=== PATIENT | female | born 1975 | race American Indian/Alaskan Native ===

== ENCOUNTER 2019-01-13 19:54 | Emergency (ER) | payer BC, MEDICAID ==
[~2019-01-13] VITALS: Ht 157.5 cm; Wt 84.1 kg
[~2019-01-13 19:54] MED LIST: CHOL100046 PO; CLIN-5 PO; FENO48TA16 PO; HYDR-4383 PO; PANT40TA4 PO; SITA50TA7 PO
[2019-01-13 20:19] VITALS: BP 163/104
== END 2019-01-13 21:18 | disposition home or self-care (01) ==
LOC: ER 19:55
DX: T18.8XXA Foreign body in other parts of alimentary tract, initial encounter (principal); E11.9 Type 2 diabetes mellitus without complications; F10.99 Alcohol use, unspecified with unspecified alcohol-induced disorder; Z90.49 Acquired absence of other specified parts of digestive tract; Z98.890 Other specified postprocedural states; Z88.0 Allergy status to penicillin; Z79.899 Other long term (current) drug therapy; X58.XXXA Exposure to other specified factors, initial encounter; Y93.89 Activity, other specified; Y92.89 Other specified places as the place of occurrence of the external cause; Y99.8 Other external cause status; Y90.9 Presence of alcohol in blood, level not specified
CPT/HCPCS: 99281

== ENCOUNTER 2019-09-13 08:50 | Outpatient (CLI) | payer BC, MEDICAID ==
[~2019-09-13 08:50] MED LIST changes: -CHOL100046 PO; +CHOL500050 PO; -CLIN-5 PO; -FENO48TA16 PO; +FENO54TA PO; +HYDR-3972 PO; -HYDR-4383 PO; +INSU100I31 SQ; +OMEG-107 PO; +SITA1TAB6 PO; -SITA50TA7 PO
[2019-09-13] MEDS ORDERED: LIDOcaine 2% 5ml jelly ONE (09:24)
== END 2019-09-13 09:50 | disposition home or self-care (01) ==
LOC: WOUND CARE 08:50 → EDSTATUS 09:00 → WOUND CARE 09:50
PROVIDERS: ATTEND Nurse Practitioner
DX: E11.622 Type 2 diabetes mellitus with other skin ulcer (principal); L98.492 Non-pressure chronic ulcer of skin of other sites with fat layer exposed; S71.001A Unspecified open wound, right hip, initial encounter; E78.1 Pure hyperglyceridemia; F17.200 Nicotine dependence, unspecified, uncomplicated; Z90.49 Acquired absence of other specified parts of digestive tract; Z79.899 Other long term (current) drug therapy; X95.9XXA Assault by unspecified firearm discharge, initial encounter; Y93.89 Activity, other specified; Y92.89 Other specified places as the place of occurrence of the external cause; Y99.8 Other external cause status
CPT/HCPCS: 36416; 82948; G0463

== ENCOUNTER 2019-09-20 13:45 | Day surgery (SDC) | payer BC, MEDICAID ==
[2019-09-20] MEDS ORDERED: LIDOcaine 2% 5ml jelly ONE (13:57)
== END 2019-09-20 14:25 | disposition home or self-care (01) ==
LOC: WOUND CARE 13:45
PROVIDERS: ATTEND Nurse Practitioner
DX: E11.622 Type 2 diabetes mellitus with other skin ulcer (principal); L98.492 Non-pressure chronic ulcer of skin of other sites with fat layer exposed; S71.001D Unspecified open wound, right hip, subsequent encounter; E78.1 Pure hyperglyceridemia; F17.200 Nicotine dependence, unspecified, uncomplicated; Z90.49 Acquired absence of other specified parts of digestive tract; Z79.899 Other long term (current) drug therapy; X95.9XXD Assault by unspecified firearm discharge, subsequent encounter
CPT/HCPCS: 36416; 97597

== ENCOUNTER 2019-09-27 13:20 | Day surgery (SDC) | payer BC, MEDICAID ==
[2019-09-27] MEDS ORDERED: LIDOcaine 2% 5ml jelly ONE (13:42)
== END 2019-09-27 14:02 | disposition home or self-care (01) ==
LOC: WOUND CARE 13:20
PROVIDERS: ATTEND Nurse Practitioner
DX: E11.622 Type 2 diabetes mellitus with other skin ulcer (principal); L98.492 Non-pressure chronic ulcer of skin of other sites with fat layer exposed; S71.001D Unspecified open wound, right hip, subsequent encounter; E78.1 Pure hyperglyceridemia; F17.200 Nicotine dependence, unspecified, uncomplicated; Z90.49 Acquired absence of other specified parts of digestive tract; Z79.899 Other long term (current) drug therapy; X95.9XXD Assault by unspecified firearm discharge, subsequent encounter
CPT/HCPCS: 97597

== ENCOUNTER 2021-09-14 16:43 | Emergency (ER) | payer BC, MEDICAID ==
[~2021-09-14] VITALS: Ht 157.5 cm; Wt 81.8 kg
[~2021-09-14 16:43] MED LIST changes: -OMEG-107 PO; +OMEG-220 PO; -PANT40TA4 PO; +PANT40TA54 PO
[2021-09-14 16:56] VITALS: BP 168/108
== END 2021-09-14 19:39 | disposition home or self-care (01) ==
LOC: ER 16:44
DX: R04.0 Epistaxis (principal); E11.9 Type 2 diabetes mellitus without complications; I10 Essential (primary) hypertension; Z98.890 Other specified postprocedural states; Z88.0 Allergy status to penicillin; Z79.899 Other long term (current) drug therapy
CPT/HCPCS: 99282

== ENCOUNTER 2022-02-07 22:54 | Emergency (ER) | payer BC, MEDICAID ==
[~2022-02-07] VITALS: Ht 157.5 cm; Wt 80.9 kg
[2022-02-08] MEDS ORDERED: LORazepam 1 MG tablet PO ONE (00:05)
[2022-02-08] MEDS ORDERED: acetaminophen 325mg tablet PO ONE (00:05)
[2022-02-08 00:10] LABS: BASOPHILS # (AUTO) 0.1 X10'3 (0-0.2); BASOPHILS % (AUTO) 0.9 % (0-1); EOSINOPHILS # (AUTO) 0.1 X10'3 (0-0.9); EOSINOPHILS % (AUTO) 1.4 % (0-6); HEMATOCRIT 39.3 % (35.0-45.0); LYMPHOCYTES # (AUTO) 2.6 X10'3 (1.1-4.8); MEAN CORPUSCULAR HEMOGLOBIN 33.7 PG (27.0-31.0); MEAN CORPUSCULAR HGB CONC 35.6 g/dL (33.0-36.5); MEAN CORPUSCULAR VOLUME 94.8 FL (78-98); MEAN PLATELET VOLUME 9.2 FL (7.4-10.4); MONOCYTES # (AUTO) 0.6 X10'3 (0-0.9); MONOCYTES % (AUTO) 6.3 % (2-12); NEUTROPHILS # (AUTO) 5.4 X10'3 (1.8-7.7); NEUTROPHILS % (AUTO) 61.4 % (42-75); PLATELET COUNT 173 X10'3 (140-440); RED BLOOD COUNT 4.15 X10'6 (4.20-5.60); RED CELL DISTRIBUTION WIDTH 12.6 % (11.5-14.5); WHITE BLOOD COUNT 8.8 X10'3 (4.5-11.0)
[2022-02-08 01:01] LABS: ALANINE AMINOTRANSFERASE 87 U/L (12-78); ALBUMIN 3.8 G/DL (3.4-5.0); ALBUMIN/GLOBULIN RATIO 1.2 (1.1-1.5); ALKALINE PHOSPHATASE 111 IU/L (46-116); ANION GAP 9 (8-16); ASPARTATE AMINO TRANSFERASE 31 U/L (10-37); BILIRUBIN,TOTAL 0.3 MG/DL (0.1-1.0); BLOOD UREA NITROGEN 12 MG/DL (7-18); CALCIUM 8.7 MG/DL (8.5-10.1); CHLORIDE 101 MMOL/L (99-107); GLUCOSE 221 MG/DL (70-104); POTASSIUM 3.7 MMOL/L (3.5-5.1); SODIUM 136 MMOL/L (135-145); TOTAL PROTEIN 7.1 G/DL (6.4-8.2); eGFR 77 ML/MIN
[2022-02-08 01:35] VITALS: BP 136/84
== END 2022-02-08 01:37 | disposition home or self-care (01) ==
LOC: ER 22:56
DX: I10 Essential (primary) hypertension (principal); E11.9 Type 2 diabetes mellitus without complications; F17.200 Nicotine dependence, unspecified, uncomplicated; Z90.49 Acquired absence of other specified parts of digestive tract; Z88.0 Allergy status to penicillin; Z79.899 Other long term (current) drug therapy
CPT/HCPCS: 36415; 71045; 80053; 83880; 84484; 85025; 93005; 99285

== ENCOUNTER 2022-02-08 21:50 | Emergency (ER) | payer BC, MEDICAID ==
[~2022-02-08] VITALS: Ht 157.5 cm; Wt 77.3 kg
[2022-02-09] MEDS: diphenhydrAMINE 50 mg/ml inj IM ONE (02:54)
[2022-02-09] MEDS: proCHLORperazine 10 MG/2 ml inj IM ONE (02:55)
[2022-02-09 03:19] LABS: URINE HCG NEGATIVE (NEG)
[2022-02-09] MEDS: ketorolac tromethamine 15mg/ml inj. IM ONE (03:32)
[2022-02-09] MEDS: LORazepam 1 MG tablet PO ONE (04:41)
[2022-02-09 05:30] VITALS: BP 160/102
== END 2022-02-09 05:42 | disposition home or self-care (01) ==
LOC: ER 21:51
DX: G43.909 Migraine, unspecified, not intractable, without status migrainosus (principal); Z88.0 Allergy status to penicillin; I10 Essential (primary) hypertension; E11.9 Type 2 diabetes mellitus without complications; Z90.49 Acquired absence of other specified parts of digestive tract; Z79.899 Other long term (current) drug therapy; Z79.84 Long term (current) use of oral hypoglycemic drugs
CPT/HCPCS: 70450; 81025; 93005; 96372; 99285; J0780; J1200; J1885